=== PATIENT | female | born 1970 | race Caucasian/White ===

== ENCOUNTER 2017-02-18 06:56 | Day surgery (SDC) | payer BC ==
[2017-02-18 08:07] VITALS: BP 104/58; TEMP 97.7
--- NOTE | 2017-02-18 09:22 | RAD ---
EXAM: LUMBAR SPINE MYELOGRAM: HISTORY: Lumbar disk degeneration. Previous fusion surgery. COMPARISON: None. EXPOSURE: 0.8 minutes. 286.1 mGy*^m2. FINDINGS: Technically successful lumbar puncture for intrathecal contrast administration. A total of 10 cc of Isovue 200M contrast was administered intrathecally. The patient tolerated the procedure well. No i mmediate or postprocedure complications. TECHNIQUE: A 2-view lumbar spine program director scouting radiograph was performed. There are unilateral left-sided transpedicular screws at L5 and S1. Disk prosthesis at L5-S1. No significant spondylolisthesis. Five lumbar-type vertebral bodies are noted. Consent was obtained to perform a lumbar puncture for intrathecal contrast administration. The patie nt's back was evaluated. The L3-L4 level was deemed appropriate. The skin was prepped and draped in sterile fashion. 1% Lidocaine, buffered with sodium bicarbonate, was used for local anesthesia. Un bell fluoroscopic guidance, a 22-gauge spinal needle was advanced into the CSF space. Via a short tub ing catheter, a total of 10 cc of Isovue 200M contrast administered intrathecally. The patient sophia ated the procedure well. No immediate or postprocedure complication. IMPRESSION: Technically successful lumbar myelogram. POS: [facility]
[2017-02-18 09:26] VITALS: BMI 24.3
[2017-02-18] MEDS ORDERED: Iopamidol-M 200 41% 20 ML VIAL ONE (13:46)
--- NOTE | 2017-02-18 15:39 | CT ---
CT LUMBAR MYELOGRAM: INDICATION: History of lumbar disk degeneration. COMPARISON: Lumbar spinal radiograph dated 07/18/16. FINDINGS: The left unilateral posterolateral spinal construct spanning L5 and S1 appears unchanged in position to the comparison radiograph. The very distal aspect of the left L5 pedicle pedicular screw does tra verse the superior end plate of L5 into the intervertebral disk space. There is an intervertebral di sk cage at L5-S1. At the L5-S1 level, there is very subtle broad-based psuedobulge remaining in addition to grade I ant erolisthesis and residual facet osteoarthritic change inducing mild to moderate right neural foramina l narrowing. At the L4-5 level, there is a broad-based bulge with facet hypertrophy without appreciable central ca nal or neural foraminal narrowing. At the L3-4 level, there is no appreciable central canal or neural foraminal narrowing. At the L2-3 level, there is no appreciable central canal or neural foraminal narrowing. At the L1-L2 level, there is no appreciable central canal or neural foraminal narrowing. The conus i s seen to terminate at the L1-L2 level. At T12-L1, there is no appreciable central canal or neural foraminal narrowing. There are mild scattered vascular calcifications noted involving the abdominal aorta. No enlarged ly mph nodes are evident within the retroperitoneum. IMPRESSION: 1. Stable postoperative changes of the posterior lumbar interbody fusion at L5-S1 with some residual mild to moderate right neural foraminal narrowing at L5-S1 related to a broad-based pseudobulge and some residual facet hypertrophy on the right. 2. No additional appreciable neural foraminal narrowing or central canal narrowing evident at remain ing visualized intervertebral levels. POS: [facility]
== END 2017-02-18 12:05 | disposition home or self-care (01) ==
LOC: RAD 06:56
PROVIDERS: ATTEND Neurological Surgery
PROC: B02B1ZZ Computerized Tomography (CT Scan) of Spinal Cord using Low Osmolar Contrast (ICD-10-PCS; principal; 2017-02-18)
DX: M51.36 Other intervertebral disc degeneration, lumbar region (principal); F41.9 Anxiety disorder, unspecified; F31.9 Bipolar disorder, unspecified; F17.210 Nicotine dependence, cigarettes, uncomplicated; G89.29 Other chronic pain; M54.9 Dorsalgia, unspecified; Z91.5 Personal history of self-harm; Z98.1 Arthrodesis status; Z79.899 Other long term (current) drug therapy; Z90.710 Acquired absence of both cervix and uterus
CPT/HCPCS: 62304; 72132